=== PATIENT | male | born 1995 | race Caucasian/White ===

== ENCOUNTER 2018-12-08 05:16 | Emergency (ER) | payer SELFPAY ==
[~2018-12-08] VITALS: Ht 182.8 cm; Wt 99.8 kg
[~2018-12-08 05:16] MED LIST: LIDEX0.05% T; MOTRIN800 MG PO; NKHM; PREDNICOT20 MG PO
[2018-12-08 05:19] VITALS: BP 115/83
[2018-12-08] MEDS ORDERED: Motrin,Rufen800 MG PO (06:08)
[2018-12-08] MEDS ORDERED: CLINDAMYCIN HC300 MG PO (06:08)
== END 2018-12-08 06:25 | disposition home or self-care (01) ==
LOC: ED 05:16
DX: K04.7 Periapical abscess without sinus (principal); K02.9 Dental caries, unspecified